=== PATIENT | female | born 1995 | race Caucasian/White ===

== ENCOUNTER 2024-01-02 18:41 | Emergency (ER) | payer OTHER, SELFPAY ==
[2024-01-02 18:42] VITALS: BP 95/76
--- NOTE | 2024-01-02 19:44 | ED.GENMED ---
History of Present Illness
General
Chief Complaint: Abdominal Symptoms
Source: patient
Exam Limitations: none
Time Seen by Provider: 01/02/24 19:25
History of Present Illness
History of Present Illness:
This is a 28 year old female that comes in with c/o constipation. State that she is 13 weeks and that she is constipated. State that she has tried stool softeners, a fleets enema tonight and laxatives. Nothing is helping. States that she
has not had a normal BM for the past 1.5 months as she has been constipated. States that she has had some nausea and a little dizziness. Denies any fever, chills, chest pain, SOB, abd pain, vomiting, diarrhea, headache, urinary burning.
Past History
Past History
ED Past Medical History: Other (Colitis)
ED Past Surgical History: None
Social History
Tobacco: Non-smoker
Alcohol: None
Drug: None
Personal:
Living: with family
Review of Systems
Review of Systems
All Other Systems: ROS reviewed and negative except as documented in HPI and ROS
Constitutional: Reports no symptoms; Denies fever or chills
EENT: Reports no symptoms
Respiratory: Reports no symptoms; Denies cough or trouble breathing
Cardiac: Denies no symptoms or chest pain
ABD/GI: Reports nausea and constipated; Denies abdominal pain, vomiting or diarrhea
: Reports no symptoms; Denies dysuria, frequency or urgency
Musculoskeletal: Reports no symptoms
Skin: Reports no symptoms
Neurological: Reports dizzy; Denies headache
Psychiatric: Reports no symptoms
Phy Exam
General Physical Exam
General Presentation: no apparent distress
General age: appears stated age
General Skin: warm and dry
General Habitus: normal
General Mental: alert
General Hydration: appears well hydrated
ENT Exam
ENT Exam: TM's normal, pharynx normal and neck supple
Eye Exam
Eye Exam: EOMI
Cardiovascular Exam
Cardiovascular Exam: regular rate/rhythm, no edema, no murmur and normal peripheral pulses
Pulmonary Exam
Pulmonary Exam: lungs clear, no respiratory distress, no rales, chest non tender, no crackles, no rhonchi, no wheezing and no cough
Gastrointestinal Exam
Gastrointestinal Exam: non tender, soft, no organomegaly, no pulsatile mass, non distended and other (Hypoactive bowel sounds, Stool in the rectal vault but to high to remove any on rectal exam)
Musculoskeletal Exam
Musculoskeletal Exam: full ROM and no edema
Skin Exam
Skin Exam: normal color, warm/dry, no rash and no petechia
Psychiatric Exam
Psychiatric Exam: normal mood/affect
Course
Orders/Labs/Results
Orders:
Orders
01/02/24 19:44
Enema- Treatment ONCE
Type: Milk of Molasses
Vital Signs
Initial and Last Documented VS:
Initial Vital Signs
Temp Pulse Resp BP Pulse Ox
97.9 F 118 16 95/76 98
01/02/24 18:42 01/02/24 18:42 01/02/24 18:42 01/02/24 18:42 01/02/24 18:42
Last Documented Vital Signs
Temp Pulse Resp BP Pulse Ox
97.9 F 118 16 95/76 98
01/02/24 18:42 01/02/24 18:42 01/02/24 18:42 01/02/24 18:42 01/02/24 18:42
MDM/Problems Addressed
Differential Diagnosis Includes:
Constipation
MDM/Problems Addressed:
This is a 28 year old that comes in with c/o constipation.
Will give Enema. Encourage patient to increase her water intake to 8-8oz glasses daily and will have patient try prune juice and apple juice in equal amounts and heat and drink daily.
Told that patient had good results from Enema. States that she is ready to go home.
Chronic conditions affecting care:
NA
Acute Exacerbation and/or Progression of Chronic Illness:
NA
*Pulse Oximetry
Patient hypoxic: no
*EKG
Interpreted by ED Provider?: NA
Rate: EKG- N/A
*Geological Sample Tester Interpretation
Rate: Geological Sample Tester- N/A
*Critical Care Note
Total Time (30-74mins, 75-104mins- exclusive of procedures): Not Applicable
ED Attending Note
-
Portions of this chart may have been created with voice recognition software.� Occasional wrong word or��sound alike� substitutions may have occurred due to the inherent limitations of voice recognition software.
Discharge Plan
Departure
Patient Disposition: Home (Routine Discharge)
Date of Disposition: 01/02/24
Time of Disposition: 20:57
Patient with high blood pressure during this ER visit?: No
Condition: Good
Covid-19: Not Applicable
Discharge Problem:
Constipation
Instructions: Constipation, Adult (DC)
Prescriptions:
No Action
omeprazole magnesium [Prilosec OTC] 20 MG tablet,delayed release (DR/EC)
20 mg PO DAILY
ondansetron HCl [Zofran] 4 MG tablet
4 mg PO Q8HPRN PRN (Reason: prn for nausea and vomiting) Qty: 14 0RF
Referrals:
Wood Gonzalez MD [Family Provider] - Call in 1-3 days for appt
Activity Restrictions/Additional Instructions:
As discussed, you may use Prune juice mixed with apple juice in equal amounts and heat and drink daily. Please increase your water intake to 8-8oz glasses daily. You may continue to use Colace to help keep the stool soft. Follow up with the family
doctor as needed. IF YOU HAVE ANY OTHER CONCERNS PLEASE RETURN TO THE EMERGENCY ROOM.
Interventions
Interventions:
*Risk Screen - Suicide Last Done: 01/02/24 18:42
*General Assessment Last Done: 01/02/24 18:42
*Neglect/Abuse Screening Last Done: 01/02/24 18:42
Discharge Date and Time
Print Language: NORWEGI[place]
== END 2024-01-02 21:11 | disposition home or self-care (01) ==
LOC: EMR 18:41
PROVIDERS: EMERGENCY PHYSICIAN Emergency Medicine; FAMILY PHYSICIAN Internal Medicine
DX: O99.611 Diseases of the digestive system complicating pregnancy, first trimester (principal); K59.00 Constipation, unspecified; Z3A.13 13 weeks gestation of pregnancy
CPT/HCPCS: 99283